=== PATIENT | male | born 1955 | race Two or more races ===

== ENCOUNTER 2023-10-27 15:39 | Emergency (ER) | payer OTHER ==
[~2023-10-27] VITALS: Ht 175.3 cm; Wt 92.1 kg
[2023-10-27] MEDS ORDERED: TAMS0.4C PO (16:19)
[2023-10-27] MEDS ORDERED: SIMVASTATIN10 MG PO (16:19)
[2023-10-27] MEDS ORDERED: LIDOCAINE HCL VISCOUS 20MG/ML BLIST 15ML MM ONE (17:00)
== END 2023-10-27 17:23 | disposition home or self-care (01) ==
LOC: ER 15:40
DX: R33.9 Retention of urine, unspecified (principal); Z91.041 Radiographic dye allergy status